=== PATIENT | female | born 1940 | race Caucasian/White ===

== ENCOUNTER 2018-05-29 05:38 | Day surgery (SDC) | payer MEDICARE, SELFPAY ==
[2018-05-29] VITALS (10 sets, daily range): BP systolic 57–139; BP diastolic 43–81; PULSE 66–69; RESP 14–16; TEMP 36.2–36.8; O2SAT 4–100; BMI 25.7
--- NOTE | 2018-05-29 06:30 | COLBX_PTH ---
PATIENT: OZIEL COLMENARES LOC: EN U#:[id number] AGE/SX: 78/F ROOM: RE05/29/[address]: Dr. Jeb Valdivia MD : 1940 BED: DIS: 05/29/2018 SPEC #: [id number] RECD: 05/29/18 10:27 STATUS: NATHALY CHRISTA #: [id number] CHRISTIANO: 05/29/18 06:[address]: Jeb Valdivia DEPT: SURGICAL PATHOLOGY RECD BY: Vikram Cruz ENTERED: 05/29/18 12:15 SP TYPE: COLON BX OTHR DR: Dr. Arturo Mathews MD Tissues: Descending colon Procedures: Surgery Specimen Level IV HEADER OPERATION: Colonoscopy PRE-OP DIAGNOSIS: Personal history of colon cancer and colon polyps TISSUE SUBMITTED: Biopsy polyp descending colon MICROSCOPIC DIAGNOSIS Polyp descending colon, biopsy: Fragments of colonic mucosa with focal tubular adenomatous changes (early tubular adenoma). SJ:any 05/30/18 MICROSCOPIC DESCRIPTION Slides are reviewed. GROSS DESCRIPTION Received in fixative is one container labeled with the patient's name and designated descending colon polyp biopsy. The specimen consists of multiple irregular fragments of light stevens soft tissue that in aggregate measure 1 x 0.3 x 0.1 cm. The specimen is totally submitted in one cassette. / AUDREY:any 05/29/18 TC:5 CPT: 63806
--- NOTE | 2018-05-29 06:55 | EKG12_ITS ---
Test Reason : ANURAG Blood Pressure : / mmHG Vent. Rate : 068 BPM Atrial Rate : 068 BPM P-R Int : 178 ms QRS Dur : 122 ms QT Int : 458 ms P-R-T Axes : -14 -24 100 degrees QTc Int : 487 ms Normal sinus rhythm Left bundle branch block Abnormal ECG When compared with ECG of 29-MAY-2018 07:00, MANUAL COMPARISON REQUIRED, DATA IS UNCONFIRMED Confirmed by BREE HERNANDEZ, JOVANI ([id number]), editorial intern RICHY SEQUEIRA ([id number]) on 05/31/2018 3:53:01 PM Referred By: Jeb Valdivia Confirmed By:JOVANI GIRON MD
--- NOTE | 2018-05-29 07:01 | OP.ENDO_ITS ---
Patient Name: Jenna Wilson Procedure Date: 05/29/2018 6:17 AM Date of : 1940 Age: 78 Procedure: Colonoscopy Indications: High risk colon cancer surveillance: Personal history of colonic polyps Providers: Jeb Valdivia MD Referring MD: Jeb Valdivia MD Medicines: Midazolam 2 mg IV, Meperidine 75 mg IV, Atropine 0.5mg given for relative bradycardia with good result Suspect demeral reaction Patient Profile: Last Colonoscopy: September 2014. Complications: Bradycardia Procedure: Pre-Anesthesia Assessment: - Prior to the procedure, a History and Physical was performed, and patient medications and allergies were reviewed. The patient's tolerance of previous anesthesia was also reviewed. The risks and benefits of the procedure and the sedation options and risks were discussed with the patient. All questions were answered, and informed consent was obtained. Prior Anticoagulants: The patient has taken aspirin, last dose was 1 day prior to procedure. ASA Grade Assessment: II - A patient with mild systemic disease. After reviewing the risks and benefits, the patient was deemed in satisfactory condition to undergo the procedure. After I obtained informed consent, the scope was passed under direct vision. Throughout the procedure, the patient's blood pressure, pulse, and oxygen saturations were monitored continuously. The colonoscope was introduced through the anus and advanced to the cecum, identified by appendiceal orifice and ileocecal valve. The colonoscopy was performed without difficulty. The patient tolerated the procedure fairly well. The quality of the bowel preparation was good. Moderate Sedation: Moderate (conscious) sedation was personally administered by the endoscopist. The following parameters were monitored: oxygen saturation, heart rate, blood pressure, and response to care. Total physician intraservice time was 15 minutes. Scope In: 6:32:19 AM Scope Withdrawal Time 0 hours 11 minutes 24 seconds Scope Out: 6:51:06 AM Total Procedure Duration Time 0 hours 18 minutes 47 seconds Findings: The digital rectal exam findings include non-thrombosed external hemorrhoids, non-thrombosed internal hemorrhoids and internal hemorrhoids that prolapse with straining, but spontaneously regress to the resting position (Grade II). A 5 mm polyp was found in the descending colon. The polyp was sessile. The polyp was removed with a cold biopsy forceps. Resection and retrieval were complete. Multiple diverticula were found in the sigmoid colon. The exam was otherwise without abnormality. Impression: - Non-thrombosed external hemorrhoids, non-thrombosed internal hemorrhoids and internal hemorrhoids that prolapse with straining, but spontaneously regress to the resting position (Grade II) found on digital rectal exam. - One 5 mm polyp in the descending colon, removed with a cold biopsy forceps. Resected and retrieved. - Diverticulosis in the sigmoid colon. - The examination was otherwise normal The patient had a relative bradycardia into the high 40s with minimal scope manipulation and persisted and worsened with no scope manipulation. Treated successfully with atropine which allowed the procedure to be completed. Suspect allergic response to demeral and will list in medication allergies. ECG in PACU. Pt remained stable throughout.. Recommendation: - Discharge patient to home. - Resume previous diet. - Continue present medications. - Repeat colonoscopy in 5 years for surveillance based on pathology results. - Telephone my office for pathology results in 1 week. Procedure Code(s): --- Professional --- 96635, Colonoscopy, flexible; with biopsy, single or multiple 97433, 59, Moderate sedation services provided by the same physician or other qualified health home care music therapist performing the diagnostic or therapeutic service that the sedation supports, requiring the presence of an independent trained observer to assist in the monitoring of the patient's level of consciousness and physiological status; initial 15 minutes of intraservice time, patient age 5 years or older Diagnosis Code(s): --- Professional --- Z86.010, Personal history of colonic polyps K64.1, Second degree hemorrhoids K64.4, Residual hemorrhoidal skin tags D12.4, Benign neoplasm of descending colon K57.30, Diverticulosis of large intestine without perforation or abscess without bleeding CPT copyright 2017 [employer]. All rights reserved. The codes documented in this report are preliminary and upon forest pathologist review may be revised to meet current compliance requirements. Jeb Valdivia MD 05/29/2018 7:00:27 AM This report has been signed electronically. Number of Addenda: 0 Note Initiated On: 05/29/2018 6:17 AM
--- NOTE | 2018-05-29 07:43 | SUR.PHASEII ---
WAS VERY BRADYCARDIC IN ENDO, REQUIRED ATROPINE. EKG & TROPONIN OBTAINED IN PACU. DENIES ANY CHEST PAIN, SOB, OTHER C/O WHILE IN PACU, NO EPISODES OF BRADYCARDIA. DR GIRON EVALUATED EKG AND COMPARED WITH PREVIOUS ON FILE, CURRENT EKG REPORTEDLY BETTER THAN THE LAST ONE. WILL REMAIN ON MONITOR TILL TROPONIN RESULTS AND DR NEWTON UPDATED. FAMILY AWARE.
== END 2018-05-29 08:30 | disposition home or self-care (01) ==
LOC: EN 05:39 → AC 05:41
PROVIDERS: Family Provider Internal Medicine; PCP Internal Medicine; Referring Provider Surgery; Visit Provider Surgery
PROC: 0DJD8ZZ Inspection of Lower Intestinal Tract, Via Natural or Artificial Opening Endoscopic (ICD-10-PCS; CPT 45378; principal; 2018-05-29 06:25)
DX: Z12.11 Encounter for screening for malignant neoplasm of colon (principal); D12.4 Benign neoplasm of descending colon; K57.30 Diverticulosis of large intestine without perforation or abscess without bleeding; K64.1 Second degree hemorrhoids; R00.1 Bradycardia, unspecified; I10 Essential (primary) hypertension; E78.5 Hyperlipidemia, unspecified; M81.0 Age-related osteoporosis without current pathological fracture; Z79.82 Long term (current) use of aspirin; Z79.899 Other long term (current) drug therapy; Z86.010 Personal history of colon polyps; Z85.3 Personal history of malignant neoplasm of breast; Z85.038 Personal history of other malignant neoplasm of large intestine; Z90.49 Acquired absence of other specified parts of digestive tract
CPT/HCPCS: 45380; 36415; 84484; 88305; 93005; 99152; 99153; J7120

== ENCOUNTER → 2018-07-31 08:21 | Outpatient (CLI) | payer MEDICARE, SELFPAY ==
--- NOTE | 2018-07-31 08:24 | BI_ITS ---
MAMMOGRAPHY - BILATERAL SCREENING REASON FOR EXAM: Female, 78 years old. Routine annual screening examination. PERTINENT HISTORY: Personal history of breast cancer. Prior left lumpectomy with radiation treatment. Patient also has a history of ovarian carcinoma and colon carcinoma. TECHNIQUE: Digital bilateral breast nakul (3D mammographic acquisition) in the CC and MLO projections. 2-D mediolateral oblique (MLO) and craniocaudad (CC) views of both breasts were obtained. CAD: Full Field Digital Mammography with Computer Added Detection was performed. COMPARISON: Comparison is made with prior study dated July 28, 2017 and July 27, 2016. FINDINGS: Breast Composition: There are scattered areas of fibroglandular density. There are no dominant masses or suspicious calcifications. Stable deformity and postsurgical changes in the deep superior aspect of the left breast. Surgical clips are once again seen in the left axillary region. Dense calcification is stable at the operative site. No other significant abnormalities are identified. There has been no significant change since the prior study. BI/SCREENING MAMM (CAD), BILAT IMPRESSION: Stable bilateral screening mammogram. Yearly follow-up mammogram recommended. (A) ASSESSMENT CATEGORY: BIRADS Category 2: Benign. A letter regarding these results will be sent to the patient by the facility within 30 days. Approximately 10% of breast cancers are not detected by mammography. A normal mammogram should not delay biopsy of a clinically suspicious abnormality. [id number] Electronically Signed: Francisco Javier Giraldo MD at 10:01 EST Tel [phone], Service support ,
== END ==
PROVIDERS: Family Provider Internal Medicine; PCP Internal Medicine; Visit Provider Nurse Practitioner Family
DX: Z12.31 Encounter for screening mammogram for malignant neoplasm of breast (principal)
CPT/HCPCS: 77063; 77067

== ENCOUNTER → 2019-08-01 12:29 | Outpatient (CLI) | payer MEDICARE, SELFPAY ==
[2018-08-07 11:12] VITALS: BMI 27.4
--- NOTE | 2019-08-01 12:32 | BI_ITS ---
MAMMOGRAPHY - BILATERAL SCREENING REASON FOR EXAM: Female, 79 years old. Routine annual screening examination. PERTINENT HISTORY: Personal history of breast cancer. Prior left lumpectomy with radiation treatment. TECHNIQUE: Digital bilateral breast grant (3D mammographic acquisition) in the CC and MLO projections. 2-D mediolateral oblique (MLO) and craniocaudad (CC) views of both breasts were obtained. CAD: Full Field Digital Mammography with Computer Added Detection was performed. COMPARISON: Comparison is made with prior study dated July 31, 2018 and July 28, 2017. FINDINGS: Breast Composition: There are scattered areas of fibroglandular density. There are no dominant masses or suspicious calcifications. Stable postoperative deformity of the left breast with dense calcification at the operative site in keeping with prior lumpectomy and radiation treatment. This is unchanged. No other significant abnormalities are identified. There has been no significant change since the prior study. BI/SCREEN MAMM (CAD) W/GRANT BILAT IMPRESSION: Stable bilateral screening mammogram. Yearly follow-up mammogram recommended. (A) ASSESSMENT CATEGORY: BIRADS Category 2: Benign. A letter regarding these results will be sent to the patient by the facility within 30 days. Approximately 10% of breast cancers are not detected by mammography. A normal mammogram should not delay biopsy of a clinically suspicious abnormality. [id number] Electronically Signed: Francisco Javier Giraldo, at 13:48 EST , Service support ,
== END ==
PROVIDERS: Family Provider Internal Medicine; PCP Internal Medicine; Referring Provider Internal Medicine Medical Oncology; Visit Provider Internal Medicine Medical Oncology
DX: Z12.31 Encounter for screening mammogram for malignant neoplasm of breast (principal); Z85.3 Personal history of malignant neoplasm of breast; Z92.3 Personal history of irradiation
CPT/HCPCS: 77063; 77067

== ENCOUNTER → 2020-08-05 10:54 | Outpatient (CLI) | payer MEDICARE, SELFPAY ==
[2019-08-06 13:58] VITALS: BMI 27.1
--- NOTE | 2020-08-05 10:56 | BI_ITS ---
MAMMOGRAPHY - BILATERAL SCREENING REASON FOR EXAM: Female, 80 years old. Routine annual screening examination. PERTINENT HISTORY: Personal history of breast cancer. Prior left lumpectomy with radiation treatment. TECHNIQUE: Digital bilateral breast grant (3D mammographic acquisition) in the CC and MLO projections. 2-D mediolateral oblique (MLO) and craniocaudad (CC) views of both breasts were obtained. CAD: Full Field Digital Mammography with Computer Added Detection was performed. COMPARISON: Comparison is made with prior study dated 08/01/2019 and 07/31/2018. FINDINGS: Breast Composition: There are scattered areas of fibroglandular density. Stable deformity with skin thickening in the upper deep outer aspect of the left breast in keeping with the prior lumpectomy. Dense dystrophic calcification is stable as well. Stable small benign-appearing bilateral axillary adenopathy. No other significant abnormalities are identified. There has been no significant change since the prior study. BI/SCREEN MAMM (CAD) W/GRANT BILAT IMPRESSION: Stable bilateral screening mammogram. Yearly follow-up mammogram recommended. (A) ASSESSMENT CATEGORY: BIRADS Category 2: Benign. A letter regarding these results will be sent to the patient by the facility within 30 days. Approximately 10% of breast cancers are not detected by mammography. A normal mammogram should not delay biopsy of a clinically suspicious abnormality. [id number] Electronically Signed: Francisco Javier Giraldo, at 12:42 EST , Service support ,
--- NOTE | 2020-08-05 11:04 | BD_ITS ---
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 COMPARISON: Comparison is made with prior examination in 06/10/1999. FINDINGS: Lumbar Spine (L1-L4): g/cm2 (0.902) / T-score (-2.3) / Z-score (-0.5) Findings are suggestive of osteopenia with a high fracture risk. Increased thoracic kyphosis. Left Femur Total: g/cm2 (0.585) / T-score (-3.4) / Z-score (-1.4) Left Femoral Neck: g/cm2 (0.582) / T-score (-3.3) / Z-score (-1.2) Right Femur Total: g/cm2 (0.601) / T-score (-3.2) / Z-score (-1.3) Right Femoral Neck: g/cm2 (0.656) / T-score (-2.7) / Z-score (-0.7) The T-Scores on the most recent prior examination were: Lumbar Spine (L1-L4): There has been improvement of bone density since the previous examination. Left Femur Total: which represents a worsening of 11%. BD/Dexa Bone Density Study IMPRESSION: The patient is considered osteoporotic as outlined below according to World Luis Organization (WHO) criteria with a high fracture risk. There has been worsening of bone density since the previous examination. Reference Information: The T-score is the number of standard deviations above or below the standard which is normal for young adults at their peak bone mineral density. The World Health Organization (WHO) interprets the T-scores as follows: Above -1 Normal bone density Between -1 and -2.5 Osteopenia Equal to / or below -2.5 Osteoporosis As a practical clinical guideline, osteopenia may be graded as follows: Mild -1 through -1.5 Moderate -1.6 through -2.0 Severe -2.1 through -2.4 The Z-score is the number of standard deviations above or below age-matched controls. A Z-score of less than -1.5 would be considered abnormal. References: 1. NIH Osteoporosis and Related Bone Diseases www osteo.org 2. International Society for Clinical Densitometry www iscd.org 3. National Osteoporosis Foundation www nof.org Electronically Signed: Francisco Javier Giraldo, at 15:37 EST , Service support ,
== END ==
PROVIDERS: PCP Internal Medicine; Referring Provider Internal Medicine; Visit Provider Internal Medicine
DX: Z12.31 Encounter for screening mammogram for malignant neoplasm of breast (principal); M81.0 Age-related osteoporosis without current pathological fracture; Z85.3 Personal history of malignant neoplasm of breast
CPT/HCPCS: 77063; 77067; 77080

== ENCOUNTER → 2021-08-10 12:57 | Outpatient (CLI) | payer MEDICARE, SELFPAY ==
--- NOTE | 2021-08-10 12:59 | BI_ITS ---
MAMMOGRAPHY - BILATERAL SCREENING REASON FOR EXAM: Female, 81 years old. Routine annual screening examination. PERTINENT HISTORY: Personal history of breast cancer. Prior left lumpectomy with radiation treatment. TECHNIQUE: Digital bilateral breast grant (3D mammographic acquisition) in the CC and MLO projections. 2-D mediolateral oblique (MLO) and craniocaudad (CC) views of both breasts were obtained. CAD: Full Field Digital Mammography with Computer Added Detection was performed. COMPARISON: Comparison is made with prior study dated 08/05/2020 and 05/02/2019. FINDINGS: Breast Composition: There are scattered areas of fibroglandular density. There are no dominant masses or suspicious calcifications. The patient is status post left lumpectomy with a resultant postoperative deformity of the left breast. Stable dense calcification at the operative site. No other significant abnormalities are identified. There has been no significant change since the prior study. BI/SCRN MAMM (CAD)W/GRANT BILAT IMPRESSION: Stable bilateral screening mammogram. Yearly follow-up mammogram recommended. (A) ASSESSMENT CATEGORY: BIRADS Category 2: Benign. A letter regarding these results will be sent to the patient by the facility within 30 days. Approximately 10% of breast cancers are not detected by mammography. A normal mammogram should not delay biopsy of a clinically suspicious abnormality. [id number] Electronically Signed: Francisco Javier Giraldo MD at 14:25 EST , Service support ,
== END ==
PROVIDERS: PCP Internal Medicine; Referring Provider Internal Medicine Medical Oncology; Visit Provider Internal Medicine Medical Oncology
DX: Z12.31 Encounter for screening mammogram for malignant neoplasm of breast (principal); Z85.3 Personal history of malignant neoplasm of breast
CPT/HCPCS: 77063; 77067

== ENCOUNTER → 2022-08-12 | Outpatient (CLI) | payer MEDICARE, SELFPAY ==
--- NOTE | 2022-08-12 13:08 | BI_ITS ---
MAMMOGRAPHY - BILATERAL SCREENING REASON FOR EXAM: Female, 82 years old. Routine annual screening examination. PERTINENT HISTORY: Personal history of breast cancer. Prior left lumpectomy with radiation. TECHNIQUE: Digital bilateral breast grant (3D mammographic acquisition) in the CC and MLO projections. 2-D mediolateral oblique (MLO) and craniocaudad (CC) views of both breasts were obtained. CAD: Full Field Digital Mammography with Computer Added Detection was performed. COMPARISON: Comparison is made with prior study 08/10/2021 and 08/05/2020. FINDINGS: Breast Composition: There are scattered areas of fibroglandular density. There are no dominant masses or suspicious calcifications. The patient is status post lumpectomy in the deep upper central portion of the left breast with resultant breast deformity and dystrophic calcification at the operative site. No other significant abnormalities are identified. There has been no significant change since the prior study. BI/SCRN MAMM (CAD)W/GRANT BILAT IMPRESSION: Stable bilateral screening mammogram. Yearly follow-up mammogram recommended. (A) ASSESSMENT CATEGORY: BIRADS Category 2: Benign. A letter regarding these results will be sent to the patient by the facility within 30 days. Approximately 10% of breast cancers are not detected by mammography. A normal mammogram should not delay biopsy of a clinically suspicious abnormality. [id number] Electronically Signed: Francisco Javier Giraldo MD at 14:08 EST ,
--- NOTE | 2022-08-12 13:27 | BD_ITS ---
STUDY: DUAL ENERGY X-RAY ABSORPTIOMETRY / DXA REASON FOR EXAM: Female, 82 years old. 733.00OsteoporosisBONE DENSITY REASON FOR EXAM TECHNIQUE: Bone Mineral Density (BMD) measurements of lumbar spine and bilateral hips were obtained. COMPARISON: Comparison is made with prior study dated 08/05/2020. FINDINGS: Lumbar Spine (L1-L4): g/cm2 (0.767) / T-score (-2.6) / Z-score (0.1) Findings are suggestive of osteoporosis with a high fracture risk. Left Femur Total: g/cm2 (0.580) / T-score (-3.0) / Z-score (-0.9) Left Femoral Neck: g/cm2 (0.417) / T-score (-3.9) / Z-score (-1.6) Right Femur Total: g/cm2 (0.600) / T-score (-2.8) / Z-score (-0.7) Right Femoral Neck: g/cm2 (0.533) / T-score (-2.8) / Z-score (-0.5) The T-Scores on the most recent prior examination were: Lumbar Spine (L1-L4): There has been worsening of bone density since the previous examination. Left Femur Total: which represents an improvement of 9.2%. Right Femur Total: which represents an improvement of 9.8%. BD/Dexa Bone Density Study IMPRESSION: The patient is considered osteoporotic as outlined below according to World [employer] Organization (WHO) criteria with a high fracture risk. There has been improvement of bone density since the previous examination. Reference Information: The T-score is the number of standard deviations above or below the standard which is normal for young adults at their peak bone mineral density. The World Health Organization (WHO) interprets the T-scores as follows: Above -1 Normal bone density Between -1 and -2.5 Osteopenia Equal to / or below -2.5 Osteoporosis As a practical clinical guideline, osteopenia may be graded as follows: Mild -1 through -1.5 Moderate -1.6 through -2.0 Severe -2.1 through -2.4 The Z-score is the number of standard deviations above or below age-matched controls. A Z-score of less than -1.5 would be considered abnormal. References: 1. NIH Osteoporosis and Related Bone Diseases www osteo.org 2. International Society for Clinical Densitometry www iscd.org 3. National Osteoporosis Foundation www nof.org Electronically Signed: Francisco Javier Giraldo MD at 9:44 EST ,
== END | disposition home or self-care (01) ==
PROVIDERS: PCP Internal Medicine; Referring Provider Internal Medicine; Visit Provider Internal Medicine
DX: Z12.31 Encounter for screening mammogram for malignant neoplasm of breast (principal); M81.0 Age-related osteoporosis without current pathological fracture
CPT/HCPCS: 77063; 77067; 77080

== ENCOUNTER 2023-07-22 07:41 | Day surgery (SDC) | payer MEDICARE, SELFPAY ==
[2023-07-22] VITALS (7 sets, daily range): BP systolic 88–134; BP diastolic 51–80; PULSE 63–84; RESP 16–18; TEMP 36.1–36.3; O2SAT 85–100; BMI 28.1
--- NOTE | 2023-07-22 07:46 | HP.PCM_ITS ---
History and Physical Date of Admission: 07/22/23 Visit Reasons: RECALL LETTER- COLONOSCOPY Chief Complaint: recall letter-colonoscopy Is patient in pain?: No Allergies acetaminophen [From Vicodin] Allergy (Severe, Verified 06/08/23 09:22) Hivesdiphenhydramine [From Benadryl-D Allergy-Sinus] Allergy (Severe, Verified 06/08/23 09:22) Rashhydrocodone [From Vicodin] Allergy (Severe, Verified 06/08/23 09:22) Unknownoxycodone Allergy (Severe, Verified 06/08/23 09:22) Unknownmeperidine [From Demerol] Allergy (Verified 06/08/23 09:22) OtherSulfa (Sulfonamide Antibiotics) Adverse Reaction (Severe, Verified 06/08/23 09:22) Rashcodeine Adverse Reaction (Intermediate, Verified 06/08/23 09:22) Rashlatex Adverse Reaction (Intermediate, Verified 06/08/23 09:22) Unknown Medications Lipitor 40 mg PO DAILY 11/17/16 [History Confirmed 06/08/23] aspirin 81 mg tablet,delayed release 81 mg PO DAILY 11/17/16 [History Confirmed 06/08/23] atenolol 25 mg tablet 25 mg PO DAILY 11/17/16 [History Confirmed 06/08/23] bimatoprost 0.03 % drops with applicator, eyelash base 1 drp EACH EYE DAILY 11/17/16 [History Confirmed 06/08/23] ergocalciferol (vitamin D2) 1,250 mcg (50,000 unit) capsule 50,000 unit PO UD 11/17/16 [History Confirmed 06/08/23] coenzyme Q10 50 mg chewable tablet 100 mg PO DAILY 02/01/18 [History Confirmed 06/08/23] timolol maleate 0.5 % eye drops 1 drp EACH EYE DAILY 08/06/19 [History Confirmed 06/08/23] PFSH Medical History Hemorrhoids History of colon polyps Hx of breast cancer Hx of malignant neoplasm of colon Hyperlipidemia Hypertension Osteoporosis Surgical History History of colon resection History of hysterectomy History of lumpectomy Hx of appendectomy Hx of colonoscopy Family History Mother Heart diseaseFather Heart disease Social History Smoking Status: Never smoker alcohol intake: never substance use type: does not use caffeine: Yes what type of physical activity do you participate in: none frequency: does not exercise seatbelt use: always HPI HPI HPI: 83-year-old female. I have most recently assisted her May 29, 2018 with a colonoscopy. Hemorrhoids noted. 5 mm polyp in the descending colon. Diverticulosis. The patient did have relative bradycardia throughout that procedure. She was treated with atropine. Pathology demonstrated focal tubular adenomatous change. By report she has a remote history of colon cancer 1983. She has also had a history of left breast cancer May 2011 treated with breast conservation therapy. 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 She follows with Dr. David Pang for her oncologic care. Fortunately she has not had any recent hospitalizations. She had some uneventful eye surgery. She denies bright red blood per rectum or melena. No abdominal pain. No unexpected weight loss. She continues to enjoy good quality of life. She lives independently. ROS General General: Yes fatigue, colon cancer and breast cancer; No weight change, appetite or weakness HEENT HEENT: Yes eye surgery; No difficulty swallowing, eye injury, swollen glands or hoarseness Endo Endocrine: No thyroid disease, diabetes mellitus, thyroid cancer, Hair loss, heat intolerance or cold intolerance Skin Skin: No rash or changing moles Musc Musculoskeletal: Yes arthritis; No back problems, rheumatoid arthritis, gout or joint pain Cardio Cardiovascular: Yes high blood pressure; No murmur, pacemaker, heart disease, atrial fibrillation, heart attack, heart stent, palpitations, shortness of breat with exertion or chest pain Psych Psychiatric: Yes anxiety; No depression or hearing voices Resp Respiratory: No shortness of breath, No sleep apnea, No cough, No COPD, No asthma, No emphysema and No wheezing Gastro Gastrointestinal: No abdominal pain, No nausea or vomiting, No diarrhea, No constipation, No blood in stool, No acid reflux, Yes hemorrhoids, No ulcers, No gallbladder problem and No black,tarry stools Umang Hematologic: No blood thinners, No blood disorders, No bleeding, No anemia and No blood clots Neuro Neurologic: No system reviewed and no additional complaints, except as documented, No as per HPI, No abnormal gait, No abnormal hearing, No abnormal movements, No abnormal speech, No behavioral changes, No burning sensations, No confusion, No convulsions, No disequilibrium, No dizziness, No localized weakness, No frequent falls, No headache(s), No lack of coordination, No loss of vision, No memory loss, No numbness, No other visual disturbances, No radicular pain, No restless legs, No sensory deficit, No syncope, No tingling, No tremor(s), No weakness and No other Exam Const General: cooperative, healthy appearing, comfortable and no acute distress Nutritional Appearance: overweight HENMT Head: normal to inspection Eyes General: appearance normal, both eyes and all related structures Neck Neck: normal visual inspection Resp Effort & Inspection: normal respiratory effort Auscultation: clear to auscultation bilaterally Cardio Rate: regular rate Rhythm: regular rhythm GI Palpation: soft and no hepatosplenomegaly Other: Normal bowel sounds Musc Cervical Spine: normal cervical lordosis Skin General: no rashes or lesions noted Neuro General: patient alert, patient awake and patient oriented x3 Extrem Other: Mild support hose left lower extremity. No pitting edema bilaterally. Psych Appearance: grossly normal Assessment and Plan Assessment and Plan (1) History of colon polyps: Status: Acute (2) Colon cancer: Status: Chronic Qualifiers: Colon location: unspecified part of colon Qualified Code(s): C18.9 - Malignant neoplasm of colon, unspecified Comment: diagnosed 1983 Plan: 83-year-old female who is currently continue to enjoy a good quality of life. She is at higher risk for recurrent colonic malignancy/polyps. Because of her good quality of life I do believe it is reasonable to offer a colonoscopy with possible biopsy or polypectomy as indicated. Because of her previous episode of intraprocedural bradycardia I recommend that we do this under monitored anesthesia care. She and her daughter have had an opportunity to ask and have questions answered. We will schedule and proceed at her discretion. I apprecia te the ongoing opportunity of assisting with her surgical care. Copy: Dr. Arturo Valdivia M.D., F.A.C.S. I have examined the patient and the H&P has been reviewed. There are no clinical changes since date of exam. Jeb Valdivia M.D., F.A.C.S.
[2023-07-22] MEDS: Lactated Ringers 1,000 ML 15 ML IV (08:11)
--- NOTE | 2023-07-22 08:45 | COLBX_PTH ---
PATIENT: OZIEL COLMENARES LOC: EN U#:[id number] AGE/SX: 83/F ROOM: RE07/22/[address]: Dr. Jeb Valdivia MD : 1940 BED: DIS: 07/22/2023 SPEC #: [id number] RECD: 07/22/23 10:58 STATUS: NATHALY HOPadmini #: [id number] CHRISTIANO: 07/22/23 08:[address]: Jeb Valdivia DEPT: SURGICAL PATHOLOGY RECD BY: Amina Cohen ENTERED: 07/22/23 12:23 SP TYPE: COLON BX OTHR DR: Dr. Arturo Mathews MD Tissues: Sigmoid colon biopsy Procedures: Surgery Specimen Level IV HEADER OPERATION: Colonoscopy, biopsy PRE-OP DIAGNOSIS: History of colon polyps, colon cancer TISSUE SUBMITTED: Proximal sigmoid polyp biopsy MICROSCOPIC DIAGNOSIS Proximal sigmoid colon polyp, biopsy: Tubular adenoma. AM:any 07/25/2023 MICROSCOPIC DESCRIPTION Slides are reviewed. GROSS DESCRIPTION Received in fixative is one container labeled with the patient's name and designated proximal sigmoid polyp. The specimen consists of two irregular fragments of light stevens soft tissue that in aggregate measure 0.7 x 0.5 x 0.1 cm. The specimen is totally submitted in one cassette. / AM:any 07/22/2023 TC:3 CPT: 68870
--- NOTE | 2023-07-22 08:46 | OP.CCLET_ITS ---
07/22/2023 Arturo Mathews Re : Colonoscopy procedure for Jenna Wilson Dear Reid This procedure was performed on Saturday, July 22, 2023. My impressions and recommendations are as follows: Impressions : - Internal hemorrhoids that prolapse with straining, but spontaneously regress to the resting position (Grade II) found on digital rectal exam. - One 5 mm polyp in the proximal sigmoid colon, removed with a cold biopsy forceps. Resected and retrieved. Clips were placed. Recommendations : - Repeat colonoscopy in 5 years for surveillance based on pathology results. - Telephone my office for pathology results in 1 week. - Continue present medications. My findings are described in the full procedure note, which is enclosed. If I can be of further assistance, please feel free to contact me at Doctor phone number(s): Work: . Sincerely, Jeb Valdivia MD 07/22/2023 8:46:24 AM This report has been signed electronically.
--- NOTE | 2023-07-22 08:46 | OP.COLON_ITS ---
Patient Name: Jenna Wilson Procedure Date: 07/22/2023 8:16 AM Date of : 1940 Age: 83 Procedure: Colonoscopy Indications: High risk colon cancer surveillance: Personal history of colon cancer Providers: Jeb Valdivia MD Medicines: See the Anesthesia note for documentation of the administered medications Patient Profile: Last Colonoscopy: May 2018. Complications: No immediate complications. Procedure: Pre-Anesthesia Assessment: - Prior to the procedure, a History and Physical was performed, and patient medications and allergies were reviewed. The patient's tolerance of previous anesthesia was also reviewed. The risks and benefits of the procedure and the sedation options and risks were discussed with the patient. All questions were answered, and informed consent was obtained. Prior Anticoagulants: The patient has taken no anticoagulant or antiplatelet agents. ASA Grade Assessment: II - A patient with mild systemic disease. After reviewing the risks and benefits, the patient was deemed in satisfactory condition to undergo the procedure. After I obtained informed consent, the scope was passed under direct vision. Throughout the procedure, the patient's blood pressure, pulse, and oxygen saturations were monitored continuously. The Colonoscope was introduced through the anus and advanced to the cecum, identified by appendiceal orifice and ileocecal valve. The colonoscopy was performed without difficulty. The patient tolerated the procedure well. The quality of the bowel preparation was good. The ileocecal valve and the appendiceal orifice were photographed. Scope In: 8:24:17 AM Scope Withdrawal Time 0 hours 14 minutes 14 seconds Scope Out: 8:42:06 AM Total Procedure Duration Time 0 hours 17 minutes 49 seconds Findings: The digital rectal exam findings include internal hemorrhoids that prolapse with straining, but spontaneously regress to the resting position (Grade II). A 5 mm polyp was found in the proximal sigmoid colon. The polyp was sessile. The polyp was removed with a cold biopsy forceps. Resection and retrieval were complete. To prevent bleeding post-intervention, two hemostatic clips were successfully placed. There was no bleeding at the end of the procedure. Impression: - Internal hemorrhoids that prolapse with straining, but spontaneously regress to the resting position (Grade II) found on digital rectal exam. - One 5 mm polyp in the proximal sigmoid colon, removed with a cold biopsy forceps. Resected and retrieved. Clips were placed. Recommendation: - Repeat colonoscopy in 5 years for surveillance based on pathology results. - Telephone my office for pathology results in 1 week. - Continue present medications. Procedure Code(s): --- Professional --- 11469, Colonoscopy, flexible; with biopsy, single or multiple Diagnosis Code(s): --- Professional --- Z85.038, Personal history of other malignant neoplasm of large intestine K64.1, Second degree hemorrhoids D12.5, Benign neoplasm of sigmoid colon CPT copyright 2021 [employer]. All rights reserved. The codes documented in this report are preliminary and upon machine shop repair technician review may be revised to meet current compliance requirements. Jeb Valdivia MD 07/22/2023 8:46:24 AM This report has been signed electronically. Number of Addenda: 0 Note Initiated On: 07/22/2023 8:16 AM
== END 2023-07-22 09:48 | disposition home or self-care (01) ==
LOC: EN 07:41 → AC 07:42
PROVIDERS: PCP Internal Medicine; Referring Provider Internal Medicine; Visit Provider Surgery
PROC: 0DJD8ZZ Inspection of Lower Intestinal Tract, Via Natural or Artificial Opening Endoscopic (ICD-10-PCS; CPT 45378; principal; 2023-07-22 08:40)
DX: Z12.11 Encounter for screening for malignant neoplasm of colon (principal); Z86.010 Personal history of colon polyps; I10 Essential (primary) hypertension; E78.00 Pure hypercholesterolemia, unspecified; Z85.038 Personal history of other malignant neoplasm of large intestine; K64.1 Second degree hemorrhoids; D12.5 Benign neoplasm of sigmoid colon; Z79.82 Long term (current) use of aspirin
CPT/HCPCS: 45380; 88305; J7120; J2405

== ENCOUNTER → 2023-08-16 | Outpatient (CLI) | payer MEDICARE, SELFPAY ==
--- NOTE | 2023-08-16 12:44 | BI_ITS ---
MAMMOGRAPHY - BILATERAL SCREENING 3-D TOMOSYNTHESIS REASON FOR EXAM: Female, 83 years old. Routine annual screening mammogram. PERTINENT HISTORY: Personal history of breast cancer status post lumpectomy with radiation. TECHNIQUE: 2-D mammograms and 3-D Tomosynthesis of the breast (s) were performed. CAD was performed. COMPARISON: August 12, 2022, August 10, 2021 FINDINGS: Stable predominantly fatty-replaced right breast. Postlumpectomy and radiation therapy changes of the left breast with fat necrosis calcifications, deformity and skin thickening, all unchanged. No dominant masses, suspicious microcalcifications, asymmetry, skin thickening or nipple retraction. BI/SCRN MAMM (CAD)W/GRANT BILAT IMPRESSION: No mammographic signs of malignancy. Yearly follow-up bilateral screening mammogram recommended. ASSESSMENT CATEGORY: BIRADS Category 2: Benign. A letter regarding these results will be sent to the patient by the facility within 30 days. FOLLOW UP RECOMMENDATION: Yearly follow up mammogram recommended. (A) Approximately 10% of breast cancers are not detected by mammography. A normal mammogram should not delay biopsy of a clinically suspicious abnormality. Electronically Signed: Pipo Reich MD at 9:58 EST ,
== END | disposition home or self-care (01) ==
LOC: OPBI 12:43
PROVIDERS: PCP Internal Medicine; Referring Provider Internal Medicine Medical Oncology; Visit Provider Internal Medicine Medical Oncology
DX: Z12.31 Encounter for screening mammogram for malignant neoplasm of breast (principal)
CPT/HCPCS: 77063; 77067

== ENCOUNTER → 2024-08-17 | Outpatient (CLI) | payer MEDICARE, SELFPAY ==
--- NOTE | 2024-08-17 09:49 | BI_ITS ---
MAMMOGRAPHY - BILATERAL SCREENING 3-D TOMOSYNTHESIS REASON FOR EXAM: Female, 84 years old. Z12.31 - Encounter for screening mammogram for malignant neopl... PERTINENT HISTORY: No significant family history. TECHNIQUE: 2-D mammograms and 3-D Tomosynthesis of the breast (s) were performed. CAD was performed. COMPARISON: 08/16/2023 FINDINGS: The breast composition is composed of scattered fibroglandular density. Scattered benign calcifications are seen. No dense spiculated masses or suspicious microcalcifications are identified. No architectural distortion is identified. There is no skin thickening or retraction. There has been no significant change since the prior study. No Change the lumpectomy changes, scarring, and calcification in the upper left breast. BI/SCRN MAMM (CAD)W/GRANT BILAT IMPRESSION: No mammographic signs of malignancy. Routine yearly mammograms recommended. ASSESSMENT CATEGORY: BIRADS Category 2: Benign. A letter regarding these results will be sent to the patient by the facility within 30 days. FOLLOW UP RECOMMENDATION: Yearly follow up mammogram recommended. (A) Approximately 10% of breast cancers are not detected by mammography. A normal mammogram should not delay biopsy of a clinically suspicious abnormality. Electronically Signed: Jonny Ledbetter MD at 19:45 EST ,
== END | disposition home or self-care (01) ==
LOC: OPBI 09:49
PROVIDERS: PCP Internal Medicine; Referring Provider Internal Medicine Medical Oncology; Visit Provider Internal Medicine Medical Oncology
DX: Z12.31 Encounter for screening mammogram for malignant neoplasm of breast (principal)
CPT/HCPCS: 77063; 77067

== ENCOUNTER → 2025-01-01 | Outpatient (CLI) | payer MEDICARE, SELFPAY ==
--- NOTE | 2025-01-01 14:52 | BD_ITS ---
PROCEDURE: DEXA BONE DENSITY STUDY 01/01/2025 REASON FOR EXAM: F, age 84 y/o . Postmenopausal. TECHNIQUE: DXA scan of sites with data reported below. REFERENCE LINKS: [facility] Adult Positions COMPARISON: Prior study dated August 05, 2020. FINDINGS: BMD and T-SCORES Lumbar spine: 0.802 g/cm2, T-score -2.2 Levels: L1 through L4 Change from prior: Improvement of 1.6%. Left femoral neck: 0.448 g/cm2, T-score -3.6 Femoral neck comparison data not recommended for monitoring change. Left total hip: 0.564 g/cm2, T-score -3.1 Change from prior: Loss of 2.8%. Right femoral neck: 0.615 g/cm2, T-score -2.1 Femoral neck comparison data not recommended for monitoring change. Right total hip: 0.642 g/cm2, T-score -2.5 Change from prior: Improvement of 7%. The World Health Organization has defined the following categories based on bone density: Normal bone density: T-score equal to or greater than -1.0 Osteopenia: T-score between -1.0 and -2.5 Osteoporosis: T-score equal to or less than -2.5 The patient does meet the pharmacological treatment recommendations for prevention of osteoporosis. BD/Dexa Bone Density Study IMPRESSION: OSTEOPOROSIS. Recommend follow-up as clinically warranted. Reading Location: [facility]
== END | disposition home or self-care (01) ==
LOC: OPBD 14:47
PROVIDERS: PCP Internal Medicine; Referring Provider Internal Medicine; Visit Provider Internal Medicine
DX: Z78.0 Asymptomatic menopausal state (principal); M81.0 Age-related osteoporosis without current pathological fracture
CPT/HCPCS: 77080